=== PATIENT | male | born 1955 | race Caucasian/White ===

== ENCOUNTER → 2022-01-11 13:16 | Outpatient (CLI) | payer MEDICARE, SELFPAY ==
--- NOTE | ~2022-01-11 | MR_ITS ---
EXAMINATION: MR knee RT wo con DATE: 01/11/2022 14:10 INDICATION: Chronic right knee pain. TECHNIQUE: Magnetic resonance imaging (MRI) of the right knee was performed without intravenous contr ast. Sequences included axial PD-weighted FS FSE, coronal PD-weighted FSE and PD-weighted FS FSE, sag ittal PD-weighted FSE, and sagittal T2-weighted FS FSE. COMPARISON: None. FINDINGS: Medial compartment: There is a complex tear involving body and posterior horn of medial meniscus. There is partial-thickn ess cartilage loss of tibial condyle, deep at the medial articular surface where there is mild subcho ndral edema-like marrow signal intensity. There is extensive partial thickness cartilage loss of femo ral condyle, deep at the central and medial articular surface with mild subchondral edema-like marrow signal intensity. Osteophytes are noted. Lateral compartment: Lateral meniscus is normal. There is shallow partial-thickness cartilage loss of tibial condyle and f emoral condyle. Osteophytes are noted. Patellofemoral compartment: There is full-thickness cartilage loss of patellar medial facet with mild subchondral edema-like lemuel ow signal intensity. There is shallow partial-thickness cartilage loss of patellar lateral facet. The re is full-thickness cartilage loss of medial trochlea with mild subchondral edema-like marrow signal intensity. Osteophytes are noted. Ligaments and tendons: The anterior and posterior cruciate ligaments are normal. Medial collateral ligament and lateral mason ateral ligament complex are intact. There is mild patellar tendinopathy. Fluid: There is a small knee joint effusion. There is edema of the suprapatellar fat pad. There is a moderat e-sized ruptured Barrera's cyst. There is mild prepatellar and superficial infrapatellar bursitis. IMPRESSION: 1. Severe chondrosis of patellofemoral compartment, moderate chondrosis of medial compartment, and mi ld chondrosis of lateral compartment. 2. Tear of medial meniscus. 3. Small knee joint effusion. 4. Moderate-sized ruptured Barrera's cyst. Reviewed, dictated and finalized at location A. [employer] IMPRESSION: 1. Severe chondrosis of patellofemoral compartment, moderate chondrosis of medi al compartment, and mild chondrosis of lateral compartment. 2. Tear of medial meniscus. 3. Small knee joint effusion. 4. Moderate-sized ruptured Barrera's cyst.
== END ==
PROVIDERS: Visit Provider Orthopaedic Surgery
DX: S83.241A Other tear of medial meniscus, current injury, right knee, initial encounter (principal); X58.XXXA Exposure to other specified factors, initial encounter; M25.461 Effusion, right knee; M71.21 Synovial cyst of popliteal space [Baker], right knee
CPT/HCPCS: 73721